=== PATIENT | female | born 1940 | race Caucasian/White ===

== ENCOUNTER → 2016-07-06 | Outpatient (CLI) | payer OTHER | LOC: BRMIMAGING 11:06 | DX: Z12.31 Encounter for screening mammogram for malignant neoplasm of breast (principal); Z85.3 Personal history of malignant neoplasm of breast | CPT/HCPCS: G0202 ==

== ENCOUNTER → 2017-07-23 | Outpatient (CLI) | payer OTHER | LOC: BRMIMAGING 08:24 | PROVIDERS: ATTEND Surgery | DX: Z12.31 Encounter for screening mammogram for malignant neoplasm of breast (principal); Z85.3 Personal history of malignant neoplasm of breast ==

== ENCOUNTER 2018-06-27 11:07 | Emergency (ER) | payer OTHER ==
--- NOTE | 2018-06-27 11:52 | EDPHY ---
H & P Time Seen by Provider: 06/27/18 11:08 HPI/ROS: CHIEF COMPLAINT: Shoulder and low back pain HISTORY OF PRESENT ILLNESS: Patient states Wednesday morning she was going to a meeting and when she pulled up in the parking lot and got out of her car she slipped on the ice. She states she went down hard landing on her left shoulder , low back and buttock. She was not knocked out. She was unable to get herself up without assistance. She did go to her meeting but had a lot of pain. Since that time she has been using both ice and heat. She has been ambulatory with some assistance. She has had no nausea or vomiting. She has had no numbness or focal weakness. She has had no incontinence. She has been taking Tylenol with codeine. She has had no blood in her urine. REVIEW OF SYSTEMS: Constitutional: No fever, no chills. Eyes: No discharge. ENT: No sore throat. Cardiovascular: No chest pain, no palpitations. Respiratory: No cough, no shortness of breath. Gastrointestinal: No abdominal pain, no vomiting. Genitourinary: No dysuria. Musculoskeletal: Per HPI Skin: No rashes. Neurological: No headache. General Appearance: Alert, moderate distress. Eyes: Pupils equal and round no pallor or injection. ENT, Mouth: Mucous membranes moist. Respiratory: There are no retractions, lungs are clear to auscultation. Cardiovascular: Regular rate and rhythm. Gastrointestinal: Abdomen is soft and nontender, no masses, bowel sounds normal. Neurological: Awake, alert, cranial nerves intact. Normal strength and sensation throughout. Skin: Warm and dry, no rashes. Musculoskeletal: Neck is supple nontender. Tenderness to palpation diffusely over left scapula. Lumbar, sacral region diffusely tender as well. Some pain with palpation of the pelvis on left. Limited range of motion to back secondary to pain. Normal passive range of motion to bilateral shoulders, elbows, wrists, hips, knees, ankles. Extremities are symmetrical. Psychiatric: Patient is oriented X 3, there is no agitation. Medical/surgical history: Breast cancer with lumpectomy, hypertension, melanoma of left eye, high cholesterol, chronic pain. Social history: Nonsmoker, social EtOH, no drugs. Smoking Status: Former smoker Constitutional: Initial Vital Signs Temperature (C) 36.8 C 06/27/18 11:15 Heart Rate 72 03/18/19 11:15 Respiratory Rate 16 06/27/18 11:15 Blood Pressure 145/81 H 06/27/18 11:15 O2 Sat (%) 93 06/27/18 11:15 O2 Delivery Mode Room Air Allergies/Adverse Reactions: promethazine [Promethazine] Allergy (Intermediate, Verified 06/27/18 11:13) body ache trazodone Allergy (Verified 06/27/18 11:13) Home Medications: Medication Instructions Recorded ASPIRIN 03/27/16 Atenolol 03/27/16 Probiotic 03/27/16 Simvastatin 03/27/16 Tamoxifen Citrate 03/27/16 Hydrocodone/Acetaminophen 2 each PO Q4-6PRN PRN #10 tablet 06/27/18 [Hydrocodon-Acetaminophen 5-325] Tylenol W/Codeine 06/27/18 Medical Decision Making - Diagnostics Imaging Results: Imaging Impressions Lumbar Spine X-Ray 06/27/18 11:43 Impression: Negative. No acute fracture. Pelvis X-Ray 06/27/18 11:43 Impression: Negative portable pelvis. No acute fracture or dislocation. Sacrum and Coccyx X-Ray 06/27/18 11:43 Impression: Suspect old or subacute fracture of the lower sacrum. No definite acute fracture. Scapula X-Ray 06/27/18 11:43 Impression: Negative. No acute fracture. Lumbar Spine CT 06/27/18 12:29 Impression: Negative. No acute lumbar spine fracture. Findings discussed with Emergency Department physician, Jessie Nair MD, on 06/27/2018 at [address] 06/27/18 12:29 Impression: 1. Subtle age indeterminate, subacute versus old, anterior buckle fracture of the anterior cortex of S4. 2. No definite acute pelvic fracture. Findings discussed with Emergency Department physician, Dr. Jessie Nair on June 27, 2018 at 1320 hours. I reviewed plain films. Questionable SI disruption on the left, L5 compression. CT scan ordered. Discussed CT results with Dr. Khalil essentially no acute findings. ED Course/Re-evaluation: Reviewed radiology results with patient and . Discussed home care, analgesics including risks associated with [place] and prolonged use of NSAIDs. Questions answered. 1:[address] Khalil, CT results essentially no acute findings. Differential Diagnosis: Differential diagnosis includes but is not limited to compression fracture of the lumbar spine, coccyx fracture, pelvic fracture, sacroiliac disruption. Contusion. After evaluation no signs of acute fracture from fall on ice 2 days ago. Reviewed home care and return precautions. Stable for discharge. - Data Points Medications Given: Discontinued Medications Hydrocodone Bitart/Acetaminophen ([place] 5/325) 1 tab PO EDNOW ONE Stop: 06/27/18 12:25 Last Admin: 06/27/18 12:34 Dose: 1 tab Hydrocodone Bitart/Acetaminophen ([place] 5/325) 1 tab PO EDNOW ONE Stop: 06/27/18 13:31 Last Admin: 06/27/18 13:35 Dose: 1 tab Departure - Departure Clinical Impression: Contusion Qualifiers: Encounter type: initial encounter Contusion area: pelvic area Qualified Code(s) : S30.0XXA - Contusion of lower back and pelvis, initial encounter Condition: Fair Instructions: Low Back Strain (ED), Hip Contusion (ED) Additional Instructions: Use ice as discussed, you can apply ice or heat after several days. Exercise as tolerated. The [place] is for more severe pain you can take 1 or 2 every 6 hr as needed. In addition you can use ibuprofen, 600 mg every 6-8 hours or Aleve as directed on packaging. Do not use ibuprofen or Aleve for more than 4-5 days in a row. Avoid constipation when using [place], take Metamucil, Colace or Dulcolax along with dietary fruits and vegetables to prevent constipation. Referrals: NONE *PRIMARY CARE P,. [Primary Care Provider] - As per Instructions Prescriptions: Hydrocodone/Acetaminophen [Hydrocodon-Acetaminophen 5-325] 2 each PO Q4-6PRN PRN #10 tablet PRN Reason: Pain, Moderate
[2018-06-27] MEDS ORDERED: HYDROCODONE/APAP 5/325 TAB PO ONE ×2 (12:24→13:30)
[2018-06-27 13:22] VITALS: BP 153/82
== END 2018-06-27 13:56 | disposition home or self-care (01) ==
LOC: CED 11:07
DX: S30.0XXA Contusion of lower back and pelvis, initial encounter (principal); M25.512 Pain in left shoulder; W00.0XXA Fall on same level due to ice and snow, initial encounter; Y93.01 Activity, walking, marching and hiking; Y92.481 Parking lot as the place of occurrence of the external cause
CPT/HCPCS: 72100-PO; 72131-PO; 72170-PO; 72192-PO; 72220-PO; 73010-PO; 99284-ER

== ENCOUNTER → 2018-09-13 | Outpatient (CLI) | payer OTHER | LOC: BRMIMAGING 08:24 ==